=== PATIENT | female | born 1960 | race Caucasian/White ===

== ENCOUNTER 2024-08-06 19:09 | Inpatient (IN) | payer BC ==
[~2024-08-06] VITALS: Ht 160 cm; Wt 58.1 kg
[2024-08-06 19:49] VITALS: PULSE 97; RESP 18; O2SAT 97
[2024-08-06] MEDS: ALBUTEROL/IPRATROPIUM 3 ML NEB NEB ONE ×2 (19:49→20:11)
[2024-08-06] MEDS: METHYLPREDNISOLONE SOD SUCC 125 MG/2ML VIAL IV ONE (20:02)
[2024-08-06 20:32] LABS: BASOPHILS % 0.5 % (0.0-1.0); EOSINOPHILS # (AUTO) 0.8 (0.0-0.4); EOSINOPHILS % 9.8 % (0.0-6.0); HEMATOCRIT 49.8 % (34.2-44.1); HEMOGLOBIN 16.5 g/dL (12.0-16.0); LYMPHOCYTES # (AUTO) 1.2 (1.0-3.2); LYMPHOCYTES % 14.7 % (18.0-39.1); MEAN CORPUSCULAR HEMOGLOBIN 28.3 pg (28-32); MEAN CORPUSCULAR HGB CONC 33.1 g/dL (31-35); MEAN CORPUSCULAR VOLUME 85.4 fL (81-99); MONOCYTES # (AUTO) 0.5 (0.2-0.8); NEUTROPHILS # (AUTO) 5.7 (2.1-6.9); NEUTROPHILS % 68.6 % (38.7-80.0); PLATELET COUNT 246 x10e3/uL (140-360); RED BLOOD COUNT 5.83 x10e6/uL (3.6-5.1); RED CELL DISTRIBUTION WIDTH 13.2 % (11.7-14.4); WHITE BLOOD COUNT 8.29 x10e3/uL (4.8-10.8)
[2024-08-06 20:48] LABS: CORONAVIRUS COVID-19 AG NEGATIVE (NEGATIVE); INFLUENZA A AG NEGATIVE (NEGATIVE); INFLUENZA B AG NEGATIVE (NEGATIVE)
[2024-08-06 21:42] LABS: ALBUMIN 3.7 g/dL (3.5-5.0); ALBUMIN/GLOBULIN RATIO 1.1 (0.8-2.0); ANION GAP 20.9 mmol/L (8-16); BILIRUBIN,TOTAL 2.2 mg/dL (0.2-1.2); CALCIUM 9.5 mg/dL (8.4-10.2); CREATININE, SERUM 0.59 mg/dL (0.57-1.11); POTASSIUM 3.9 mmol/L (3.5-5.1)
[2024-08-06] MEDS: SODIUM CHLORIDE 0.9% 1000ML 1,000 ML IV ONE (21:56)
[2024-08-06] MEDS ORDERED: BENZONATATE 100 MG CAP ONE (22:11)
[2024-08-06] MEDS ORDERED: ONDANSETRON HCL INJ 2MG/ML 2ML 2 MG/ML VIAL IV PRN (22:15)
[2024-08-06] MEDS ORDERED: SODIUM CHLORIDE FLUSH 10 ML SYR INJ PRN (22:15)
[2024-08-06] MEDS: BENZONATATE 100 MG CAP PO PRN (22:16)
[2024-08-06] MEDS: ALBUTEROL/IPRATROPIUM 3 ML NEB NEB SCH (23:00)
[2024-08-06 23:24] VITALS: PULSE 88; RESP 20; TEMP 98.6
[2024-08-07] VITALS (15 sets, daily range): BP systolic 130–181; BP diastolic 56–92; PULSE 60–96; RESP 16–22; TEMP 97.5–98.3; O2SAT 92–99
[2024-08-07] MEDS ORDERED: DEXTROAMP-AMPHE20 M1 PO (00:38)
[2024-08-07] MEDS ORDERED: ATIVAN2 MG PO (00:38)
[2024-08-07] MEDS ORDERED: MONTELUKAST SOD10 MG PO (00:38)
[2024-08-07] MEDS ORDERED: ARMOUR THYROID180 MG PO (00:38)
[2024-08-07 05:48] LABS: BASOPHILS % 0.2 % (0.0-1.0); EOSINOPHILS % 0.2 % (0.0-6.0); HEMATOCRIT 40.2 % (34.2-44.1); HEMOGLOBIN 13.5 g/dL (12.0-16.0); LYMPHOCYTES # (AUTO) 0.4 (1.0-3.2); LYMPHOCYTES % 8.5 % (18.0-39.1); MEAN CORPUSCULAR HEMOGLOBIN 28.4 pg (28-32); MEAN CORPUSCULAR HGB CONC 33.6 g/dL (31-35); MEAN CORPUSCULAR VOLUME 84.5 fL (81-99); MONOCYTES # (AUTO) 0.1 (0.2-0.8); MONOCYTES % 1.1 % (4.4-11.3); NEUTROPHILS # (AUTO) 4.1 (2.1-6.9); NEUTROPHILS % 89.1 % (38.7-80.0); PLATELET COUNT 223 x10e3/uL (140-360); RED BLOOD COUNT 4.76 x10e6/uL (3.6-5.1); WHITE BLOOD COUNT 4.61 x10e3/uL (4.8-10.8)
[2024-08-07 06:19] LABS: ALBUMIN 3.4 g/dL (3.5-5.0); ALBUMIN/GLOBULIN RATIO 1.1 (0.8-2.0); ANION GAP 15.2 mmol/L (8-16); BILIRUBIN,TOTAL 1.5 mg/dL (0.2-1.2); CALCIUM 9.4 mg/dL (8.4-10.2); CREATININE, SERUM 0.59 mg/dL (0.57-1.11); POTASSIUM 4.2 mmol/L (3.5-5.1); TOTAL PROTEIN 6.5 g/dL (6.5-8.1)
[2024-08-07] MEDS ORDERED: METHYLPREDNISOLONE SOD SUCC 125 MG/2ML VIAL IV SCH (09:00)
[2024-08-07] MEDS ORDERED: LORAZEPAM 0.5 MG TAB PO PRN (09:30)
[2024-08-07] MEDS: METHYLPREDNISOLONE SOD SUCC 40 MG/ML VIAL 1ML IV SCH (10:07)
[2024-08-07] MEDS: AZITHROMYCIN 250 MG TAB PO ONE (10:07)
[2024-08-07] MEDS: BUDESONIDE/FORMOTEROL 160/4.5MCG INHALER INH SCH (19:00)
[2024-08-07] MEDS: MONTELUKAST SODIUM 10 MG TAB PO SCH (20:59)
[2024-08-07] MEDS: LORAZEPAM 1 MG TAB PO PRN (20:59)
[2024-08-07] MEDS: HEPARIN SOD (PORCINE) 5,000 UNIT/ML VIAL SC SCH (21:07)
[2024-08-08] VITALS (14 sets, daily range): BP systolic 145–166; BP diastolic 65–72; PULSE 72–90; RESP 18–20; TEMP 97.7–98.4; O2SAT 93–100
[2024-08-08] MEDS: THYROID 60 MG TAB PO SCH (05:08)
[2024-08-08 05:41] LABS: BASOPHILS % 0.1 % (0.0-1.0); HEMATOCRIT 39.8 % (34.2-44.1); HEMOGLOBIN 13.1 g/dL (12.0-16.0); LYMPHOCYTES # (AUTO) 0.7 (1.0-3.2); LYMPHOCYTES % 5.8 % (18.0-39.1); MEAN CORPUSCULAR HEMOGLOBIN 28.3 pg (28-32); MEAN CORPUSCULAR HGB CONC 32.9 g/dL (31-35); MONOCYTES # (AUTO) 0.4 (0.2-0.8); MONOCYTES % 3.2 % (4.4-11.3); NEUTROPHILS # (AUTO) 10.9 (2.1-6.9); NEUTROPHILS % 90.5 % (38.7-80.0); PLATELET COUNT 295 x10e3/uL (140-360); RED BLOOD COUNT 4.63 x10e6/uL (3.6-5.1); RED CELL DISTRIBUTION WIDTH 13.3 % (11.7-14.4); WHITE BLOOD COUNT 12.01 x10e3/uL (4.8-10.8)
[2024-08-08 06:04] LABS: ANION GAP 15.2 mmol/L (8-16); CALCIUM 9.2 mg/dL (8.4-10.2); CREATININE, SERUM 0.62 mg/dL (0.57-1.11); POTASSIUM 4.2 mmol/L (3.5-5.1)
[2024-08-08] MEDS: AZITHROMYCIN 250 MG TAB PO SCH (08:37)
[2024-08-08] MEDS: GUAIFENESIN 600 MG TAB PO SCH (08:42)
[2024-08-08] MEDS: ACETAMINOPHEN 325 MG TAB PO PRN (17:35)
[2024-08-08] MEDS: METHYLPREDNISOLONE SOD SUCC 40 MG/ML VIAL 1ML IV SCH (20:28)
[2024-08-09] VITALS (8 sets, daily range): BP systolic 149–154; BP diastolic 72–76; PULSE 68–98; RESP 18–22; TEMP 97.4–98.1; O2SAT 95–99
[2024-08-09] MEDS: BENZONATATE 100 MG CAP PO PRN (01:28)
[2024-08-09] MEDS: SODIUM CHLORIDE 0.9% 250ML 250 ML ONE (11:08)
== END 2024-08-09 14:45 | disposition home or self-care (01) | DRG 190 ==
LOC: ER 19:45 → ERHOLD 22:13 → MED/SURG2 23:55 → OBSVTOIN 08-08 08:21 → MED/SURG2 08-09 07:51
PROVIDERS: ADMIT Internal Medicine; ATTEND Internal Medicine
DX: J44.0 Chronic obstructive pulmonary disease with (acute) lower respiratory infection (principal); J18.9 Pneumonia, unspecified organism; J45.901 Unspecified asthma with (acute) exacerbation; J44.1 Chronic obstructive pulmonary disease with (acute) exacerbation; R09.02 Hypoxemia; I10 Essential (primary) hypertension; Z87.891 Personal history of nicotine dependence; E03.9 Hypothyroidism, unspecified; D50.9 Iron deficiency anemia, unspecified; D72.10 Eosinophilia, unspecified; K21.9 Gastro-esophageal reflux disease without esophagitis; Z11.52 Encounter for screening for COVID-19; Z98.84 Bariatric surgery status; Z79.899 Other long term (current) drug therapy
CPT/HCPCS: 36415; 71045; 71250; 80048; 80053; 83036; 85025; 94640; 94760; 94799; 99284; G0378; J0696; J1644; J2919; J7030; J7050